=== PATIENT | male | born 1990 | race Caucasian/White ===

== ENCOUNTER 2021-07-08 15:30 | Outpatient (RCR) | payer OTHER, SELFPAY ==
--- NOTE | 2021-06-17 08:47 | PTOPEVAL ---
PHYSICAL THERAPY EVALUATION AND PLAN OF CARE 06-17-21 Thank you for referring Omi Hope to [facility], for the diagnosis of dorsalgia. Omi is scheduled to be seen for therapy? 1 x/week for 4 weeks. Please review, sign, date and return this plan of care KEARA. I agree with and certify that the following plan of care is medically necessary. Referring Physician Date Attending Provider: Tammi Singh NP *PT Outpatient Evaluation Document 06/17/21 08:00 KOBIALIDA (Rec: 06/17/21 08:46 JUDY [id number]) Past Medical History- unremarkable except chronic back pain Source of Past Medical History Patient Evaluation Information Problem Diagnosis dorsalgia Onset Feb 2021 Subjective Information gradual increase in back pain; Query Text:As Reported By Patient/ no trauma or injury to back; Family Diagnostic Tests X-Rays For This Problem No MRI For This Problem No Other Tests For This Problem No Prior Level of Function Activity Level (Last 3 Months) 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, 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, 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; 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 Additional Prior Level of Function able to perform all home, work Comments and self care tasks; works about 48 hours/week; does not do any fitness activity; Pain Assessment Timing of Pain Assessment Timing of Pain Assessment Assessment Pain Scale Pain Scale Used Numeric (1 - 10) Self Report Pain Assessment Bilateral Back Reported Pain Level 0 Pain Description Sharp Pain Frequency Chronic,Intermittent Lowest Pain Intensity 0 Greatest Pain Intensity 4 Pain Aggravating Factors Exercise/Activity Other Pain Aggravating Factors take wheel off car,pull too much; Pain Behaviors None Pain Score Pain Score 0: Self Report Additional Pain Score Comments walking, standing and sleeping do not bother his back; Oswestry self assessment functional score of 2% limitation in activity level-- only activity with limitation is standing; Interventions Used Interventions Used By Clinicians Education,Exercise Pain Relief Interventions Used By Inactivity/Rest,Lying Supine Patient Other Alleviating Interventions is not taking any pain meds; not using heat/ice; Cervical and Lumbar ROM Lumbar ROM
--- NOTE | 2021-06-24 15:44 | PCPTNOTE ---
Patient did not show up for scheduled appointment this date.
--- NOTE | 2021-07-01 15:59 | PCPTNOTE ---
Patient did not show up for scheduled appointment this date. Called & had to leave a message.
--- NOTE | 2021-07-08 16:05 | PCPTNOTE ---
Patient did not show up for scheduled appointment this date. Called & had to leave a message. Informed him that this was his 3 no show, and per our policy, he would discharged form therapy and a note will be sent to his
--- NOTE | 2021-07-15 11:09 | PCPTNOTE ---
PHYSICAL THERAPY DISCHARGE 07-15-21 Attending Provider: Tammi Singh NP Patient:Omi Hope Date of :1990 Omi has not returned for any further treatments since the initial evaluation on 07/08/2021, therefore he will be discharged at this time. He did not show for 3 scheduled appointments. Thank you for referring Mr. Hope to [facility]. Please review, sign, date and return this discharge summary KEARA. I have been updated about the patient's current status and I agree with discharge from the above service at this time. Referring Physician Date
== END 2021-07-15 12:52 | disposition home or self-care (01) ==
LOC: ANHPT 15:30
PROVIDERS: PCP Internal Medicine; Visit Provider Nurse Practitioner
DX: M54.9 Dorsalgia, unspecified (principal)
CPT/HCPCS: 97161

== ENCOUNTER → 2022-04-21 09:54 | Outpatient (CLI) | payer OTHER, SELFPAY ==
--- NOTE | ~2022-04-21 | XR_ITS ---
XR lumbar spine 2-3V DATE: 04/21/2022 10:05 INDICATION: Chronic low back pain TECHNIQUE: AP, lateral views COMPARISON: None FINDINGS: No fracture or bone destruction or spondylolisthesis. The included lower thoracic and lumba r pedicles are intact. The sacroiliac joints appear normal. 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
== END ==
PROVIDERS: PCP Clinical Nurse Specialist; Visit Provider Clinical Nurse Specialist
DX: M54.50 Low back pain, unspecified (principal)
CPT/HCPCS: 72100